=== PATIENT | female | born 1950 | race Caucasian/White ===

== ENCOUNTER 2024-06-12 10:41 | Emergency (ER) | payer MEDICARE, OTHER, SELFPAY ==
[2024-06-12 10:56] VITALS: BP 123/72; PULSE 72; RESP 18; TEMP 36.5; O2SAT 98; BMI 20.4
--- NOTE | 2024-06-12 11:03 | XR_ITS ---
Examination: CT abdomen with intravenous contrast CT pelvis with intravenous contrast 2-D coronal reconstructions 2-D sagittal reconstructions Date and time of exam:June 12, 2024 1351 hours INDICATIONS: Right upper abdominal pain radiating to the back today. CTDI: vol (mGy) 5.6 DLP: (mGycm) 271 Technique: Multiple axial sections of the abdomen and pelvis have been obtained. 64 slice high-resolution scanner used. 3 mm axial sections have been obtained, post intravenous injection 60 cc [id number] 2-D sagittal, coronal reconstructions obtained. Low dose protocols were performed. One or more of the following dose reduction techniques were used; automated exposure control, adjustment of the mA and/or KV according to patient size, use of iterative reconstruction technique. Findings: Multiple benign liver cysts Fatty infiltration throughout the liver Spleen is not enlarged No pancreatic or adrenal mass No renal or ureteral calculi, no hydronephrosis Aorta normal size Normal appendix No bowel obstruction No diverticulitis Absent uterus No pelvic mass Severe osteopenia, kyphoplasty lower 4 lumbar levels Advanced narrowing hip joints IMPRESSION: No renal or ureteral calculi, no hydronephrosis Normal appendix Severe osteopenia, kyphoplasty lower 4 lumbar levels
[2024-06-12 11:18] LABS: Collection Type, Urine Clean Catch
[2024-06-12 11:21] LABS: Bilirubin,Urine Negative (Negative); Blood,Urine Negative (Negative); Clarity,Urine Clear (Clear/Hazy); Color,Urine Lt-Yellow (Lt Yel-Yel); Culture Indicated,Urine Not Indicated; Glucose, Urine Negative (Negative); Ketones,Urine Negative (Negative); Leukocyte Esterase,Urine Negative (Negative); Nitrite,Urine Negative (Negative); PH,Urine 5.5 (5.0-7.0); Protein,Urine Trace (Neg - Trace); RBC,Urine 4 /hpf (0-3); Specific Gravity,Urine 1.017 (1.001-1.035); Squamous Epithelial Cell,Urine < 1 /hpf (0-5); Urobilinogen,Urine Negative mg/dL (0.0-1.0); WBC,Urine < 1 /hpf (0-5)
--- NOTE | 2024-06-12 11:35 | PD.EDRME ---
Rapid Medical Screening Exam RME Arrival date/time: 06/12/24 10:41 73-year-old female presents to the emergency department complaints of abdominal pain Chief Complaint: Abdominal Pain Time Seen by Provider: 06/12/24 10:59 Vital signs: Vital Signs Temperature 97.7 F 06/12/24 10:56 Pulse Rate 72 06/12/24 10:56 Respiratory Rate 18 06/12/24 10:56 Blood Pressure 123/72 06/12/24 10:56 Pulse Oximetry (%) 98 06/12/24 10:56 Oxygen Delivery Method Room Air 06/12/24 10:56
[2024-06-12 12:13] LABS: Basophils # (Auto) 0.1 Thou/mm3 (0.0-0.2); Basophils % (Auto) 1 % (0-2.5); Eosinophils # (Auto) 0.1 Thou/mm3 (0.0-0.5); Eosinophils % (Auto) 2 % (0-10); Hematocrit 41.1 % (36.0-46.0); Hemoglobin 13.8 g/dL (12.0-16.0); Immature Granulocytes % (Auto) 0 % (0-0); Immature Granulocytes Auto 0.02 Thou/mm3 (0.00-0.00); Lymphocytes % (Auto) 22 % (10-50); Mean Corpuscular HGB Conc 33.6 g/dl (31.0-37.0); Mean Corpuscular Volume 89 fL (80-100); Monocytes # (Auto) 0.8 Thou/mm3 (0.0-0.8); Monocytes % (Auto) 9 % (0-12); Neutrophils # (Auto) 6.2 Thou/mm3 (1.8-7.7); Neutrophils % (Auto) 67 % (37-80); Nucleated Red Blood Cell % 0 /100 WBC (0); Platelet Count 209 Thou/mm3 (140-440); RDW Standard Deviation 41.9 fL (36.4-46.3); White Blood Count 9.2 Thou/mm3 (3.6-11.0)
[2024-06-12 12:43] LABS: Alanine Aminotransferase 17 U/L (10-49); Albumin, Serum 4.8 gm/dL (3.4-4.8); Albumin/Globulin Ratio 2.2 (1.2-2.2); Alkaline Phosphatase 113 U/L (46-116); Anion Gap 7 (7-16); Aspartate Amino Transferase < 8 U/L (0-34); BUN/Creatinine Ratio 16 Ratio (12-20); Bilirubin,Total 0.5 mg/dL (0.3-1.2); Blood Urea Nitrogen 14 mg/dL (9-23); Carbon Dioxide 27.9 mMol/L (20.0-31.0); Chloride 103 mMol/L (98-107); Creatinine (Component) 0.9 mg/dL (0.6-1.3); Estimated Creatinine Clearance 43.4 mL/min (>60); Globulin 2.2 gm/dL (2.3-3.5); Glucose 105 mg/dL (74-106); Lipase 51 U/L (12-53); Osmolality,Calculated 276 (275-295); Potassium 4.1 mMol/L (3.4-5.1); Sodium 138 mMol/L (136-145); eGFR > 60 See Note
--- NOTE | 2024-06-12 14:43 | EDNOTE_ITS ---
ED Abdominal Pain RME/HPI General Chief Complaint: Abdominal Pain Stated complaint: ABD PAIN X 5 DAYS; CHO SENT FOR POSS. LALI Time seen by provider: 06/12/24 10:59 Arrival date/time: 06/12/24 10:41 Limitations: no limitations RME / HPI RME / HPI narrative: 06/12/24 10:41 73-year-old female presents to the emergency department complaints of abdominal pain DR. CRISTIANO CARTWRIGHT ED EVALUATION: 73 year old female with history of chronic back pain s/p kyphoplasty presents to the ED for evaluation of abdominal pain beginning 5 days ago and progressively worsening. Described as sharp in sens ation that is located most to the right upper quadrant and epigastric regions that radiates to her right flank. Aggravated with sitting and certain positions. Improved with lying completely flat. States she consulted her PCP who prescribed a muscle relaxer that did not provide relief. Denies fevers, chills, chest pain, cough, shortness of breath, vomiting, diarrhea, or urinary symptoms. States she had experienced pain on/off for several months in the RUQ to a lesser severity and has consulted PCP. Related Data Home Medications ?Medication ?Instructions ?Recorded ?Confirmed calcium 600 mg (as carbonate)-vit 1 tab PO BID 12/20/18 01/26/23 D3 20 mcg (800 unit) chewable tablet (Caltrate plus D) fluticasone propionate 50 2 spray intranasal QDAY 12/20/18 01/26/23 mcg/actuation nasal spray,suspension metoprolol tartrate 25 mg tablet 25 mg PO QDAY 12/20/18 01/26/23 montelukast 10 mg tablet 10 mg PO QPM 12/20/18 01/26/23 tramadol 50 mg tablet 50 mg PO BID PRN Pain 07/29/22 01/26/23 Previous Rx's ?Medication ?Instructions ?Recorded acetaminophen 500 mg capsule 1,000 mg (2 x 500 mg) PO Q6H PRN 06/12/24 pain #20 caps ibuprofen 600 mg tablet 600 mg PO Q6H PRN pain #30 tabs 06/12/24 Allergies Allergy/AdvReac Type Severity Reaction Status Date / Time meperidine Allergy Unknown Verified 06/12/24 10:43 Review of Systems Review of Systems Narrative Review of Systems: GEN: No fever, no chills, no weight loss EYES: No discharge, no visual changes, no pain HEENT: No ear pain, no congestion, no sore throat PULM: No shortness of breath, no cough, no congestion CV: No chest pain, no dyspnea on exertion, no palpitations GI: No nausea, no vomiting, no diarrhea, +pain, no constipation : No frequency, no urgency, no dysuria MUSC/SKEL: No joint pain, +back pain SKIN: No rash NEURO: No weakness, no headache Past Medical History Past Medical History CARDIAC: Positive Cardiac Arrhythmia, Hypercholesterolemia and Hypertension GASTROINTESTINAL: Positive Gastrointestinal Disorders, Diverticulitis and Irritable Bowel GENITOURINARY: Positive Genitourinary Disorders (kidney infection hospitalized x5 days) MUSCULOSKELETAL: Positive Musculoskeletal Disorders, Arthritis, Osteoporosis, Carpal Tunnel Syndrome (Right x2) and Fractures (X3) OTHER HISTORY: Positive Chicken Pox and Measles; Negative Organ Transplant Family History FAMILY HISTORY: Positive Family Cardiac Disorders (father VA, mom stroke) and Family Cancer (sister uterine) Surgical History SURGICAL: Positive Tonsillectomy, Joint Replacement and Hysterectomy; Negative Organ Transplant Social History SMOKING STATUS: Never smoker ED Exam General Limitations: Present no limitations General appearance: Present alert and in distress (Appears to be in moderate pain ) Head Head exam: Present atraumatic, normocephalic and normal inspection Eye Eye exam: Present normal appearance, PERRL and EOMI ENT ENT exam: Present normal exam, normal oropharynx and mucous membranes moist Neck Neck exam: Present normal inspection, full ROM and trachea midline Chest Chest inspection: Present normal inspection and symmetric chest wall rise Respiratory Respiratory exam: Present normal lung sounds bilaterally Cardiovascular Cardiovascular exam: Present regular rate, normal rhythm and normal heart sounds Abdominal Exam Abdominal exam: Present soft and normal bowel sounds; Absent distention, tenderness, guarding, rebound or rigidity Extremities Exam Extremities exam: Present normal inspection and full ROM Back Exam Back exam: Present normal inspection and full ROM; Absent tenderness, CVA tenderness (R) or CVA tenderness (L) Neurological Exam Neurological exam: Present alert, oriented X3 and CN II-XII intact Psychiatric Psychiatric exam: Present normal affect and normal mood Skin Skin exam: Present warm, dry, intact and normal color Course Quality Measures none Orders Category Date Time Status CT Screening NOW Care 06/12/24 11:[address] abdomen pelvis w con Stat Exams 06/12/24 11:03 Completed US gall bladder Stat Exams 06/12/24 14:53 Completed CBC Stat Lab 06/12/24 11:55 Completed Comprehensive Metabolic Panel Stat Lab 06/12/24 11:55 Completed Lipase Stat Lab 06/12/24 11:55 Completed UA, C/S IF [Urinalysis, C/S if Indicated] Stat Lab 06/12/24 11:13 Completed Acetaminophen Ivpb [Ofirmev Inj] Med 06/12/24 15:53 Discontinued 1,000 mg in 100 ml IV X1 Ketorolac Inj [Toradol Inj] Med 06/12/24 15:53 Discontinued 15 mg IVP X1 ONE Reevaluation(s) Reevaluation #1: We reviewed all the results, analysis, and treatment plans. Will order pain medication and reassess. Time: 15:35 Reevaluation #2: Patient reports improvement. Will DC home with instructions to follow up with PCP. Time: 16:20 Vital Signs Vital signs: Vital Signs Temperature 97.7 F 06/12/24 10:56 Pulse Rate 72 06/12/24 10:56 Respiratory Rate 18 06/12/24 10:56 Blood Pressure 123/72 06/12/24 10:56 Pulse Oximetry (%) 98 06/12/24 10:56 Oxygen Delivery Method Room Air 06/12/24 10:56 Pulse ox is 98% on room air which is adequate. Abdominal Pain MDM MDM Narrative MDM Narrative:: Kandi Law am scribing for and in the presence of Dr. Stafford. Patient data External records reviewed:: [facility] previous records (I reviewed H&P on 01/26/2023 ) Clinical information provided by:: patient Social determinants that could affect healthcare access:: none Patient has the following chronic illnesses:: chronic back pain s/p kyphoplasty How is presenting disease/condition affected by chronic disease/condition?: exacerbated by Evaluation data The following diagnostics were reviewed and interpreted by me:: lab results and radiology exam(s) Lab and/or radiology exams considered but not ordered:: None Interpretation Summary: Ordering Physician: Zulay HARPER)Crow NP Date of Service: 06/12/24 Procedure(s): CT abdomen pelvis w con Accession Number(s): [id number] cc: Zulay HARPER)Crow NP; lEijah Marcus MD; Monica Cho MD~ Examination: CT abdomen with intravenous contrast CT pelvis with intravenous contrast 2-D coronal reconstructions 2-D sagittal reconstructions Date and time of exam:June 12, 2024 1351 hours INDICATIONS: Right upper abdominal pain radiating to the back today. CTDI: vol (mGy) 5.6 DLP: (mGycm) 271 Technique: Multiple axial sections of the abdomen and pelvis have been obtained. 64 slice high-resolution scanner used. 3 mm axial sections have been obtained, post intravenous injection 60 cc [id number] 2-D sagittal, coronal reconstructions obtained. Low dose protocols were performed. One or more of the following dose reduction techniques were used; automated exposure control, adjustment of the mA and/or KV according to patient size, use of iterative reconstruction technique. Findings: Multiple benign liver cysts Fatty infiltration throughout the liver Spleen is not enlarged No pancreatic or adrenal mass No renal or ureteral calculi, no hydronephrosis Aorta normal size Normal appendix No bowel obstruction No diverticulitis Absent uterus No pelvic mass Severe osteopenia, kyphoplasty lower 4 lumbar levels Advanced narrowing hip joints IMPRESSION: No renal or ureteral calculi, no hydronephrosis Normal appendix Severe osteopenia, kyphoplasty lower 4 lumbar levels Dictated By: Elijah Marcus MD Signed By: <Electronically signed by Elijah Marcus MD in OV> 06/12/24 1427 Ordering Physician: Sylvester Stafford MD Date of Service: 06/12/24 Procedure(s): US gall bladder Accession Number(s): [id number] cc: Elijah Marcus MD; Monica Cho MD; Sylvester Stafford MD~ Examination: Abdomen sonogram, Limited Date and time of exam: June 12, 2024 1459 hours INDICATIONS: Right upper abdominal pain beginning 5 days ago Technique: Real-time rick scale transabdominal sonographic images of the upper abdomen obtained. Findings: Normal gallbladder Normal common bile duct 0.2 cm Pancreatic head 2.4 cm Liver 12.8 cm multiple liver cysts, the largest in the left lobe 2.4 cm Normal hepatopedal portal venous flow Patent IVC IMPRESSION: Normal gallbladder Normal common bile duct Benign liver cysts Dictated By: Elijah Marcus MD Signed By: <Electronically signed by Elijah Marcus MD in OV> 06/12/24 1528 Medications / Prescriptions Medications or Prescriptions considered but not ordered:: None Medication administrations:: Medication Administration History Discontinued Medications Acetaminophen (Ofirmev Inj) 1,000 mg in 100 mls @ 250 mls/hr IV X1 ONE Stop: 06/12/24 16:16 Last Admin: 06/12/24 16:24 Dose: Not Given Documented By: GIUSEPPE Non-Admin Reason: Patient Refused Ketorolac Tromethamine (Ketorolac Inj 30 Mg/Ml Vial) 15 mg IVP X1 ONE Stop: 06/12/24 15:54 Last Admin: 06/12/24 16:23 Dose: 15 mg Documented By: GIUSEPPE See above Consultations Consultation(s) initiated? (list below): No Diagnosis Differential diagnosis abdominal pain: abdominal pain, acute appendicitis, calculus of kidney, constipation, gastroenteritis and other (Cholelithiasis, cho lecystitis ) Most likely diagnosis given after review of the tests above:: Chronic pain Admission Indicated Admission indicated?: not indicated Admission Request Was there a request for admission?: No Disposition Plan Disposition Plan: Discharge Discharge Attestation Discharge Attestation: The patient and all family members were given an opportunity to ask questions and understood the discharge instructions. Discharge instructions specifically effects, indications for sooner follow up or return to the emergency department, and the expected course of current diagnosis. Patient condition: Stable Discharge Plan Plan Patient Disposition: HOME (Self Care) Disposition Comment: Stable for discharge Patient condition on transfer: Stable Prescriptions/Referrals Prescriptions/Med Rec: New acetaminophen 500 mg capsule 1,000 mg PO Q6H PRN (Reason: pain) Qty: 20 0RF ibuprofen 600 mg tablet 600 mg PO Q6H PRN (Reason: pain) Qty: 30 0RF No Action montelukast 10 mg Tablet 10 mg PO QPM fluticasone propionate 50 mcg/actuation [place],Suspension 2 spray INTRANASAL QDAY metoprolol tartrate 25 mg Tablet 25 mg PO QDAY Caltrate 600 plus D 600 mg (1,500 mg)-800 unit Tablet,Chewable 1 tab PO BID tramadol 50 mg Tablet 50 mg PO BID PRN (Reason: Pain) Referrals: Monica Cho MD [Primary Care Provider] - In 1 week Problem List Clinical Impression: Chronic pain Patient/Caregiver Discharge Instructions Discharge Activity: activity as tolerated Education Materials: Complementary Care for Pain, Chronic Pain Therapies Mind Body, ED Chronic Pain Additional Instructions: Return to the emergency department for any worsening or any further medical problems The CT scan of your abdomen and pelvis, the ultrasound of your gallbladder, all of your blood work and urine were all within normal limits today. The etiology of your chronic pain remains unclear but you should follow-up with your primary care doctor within the next several days and she will perform more tests Print Language: Chinese Stand Alone Forms: [employer] Info., Patient Portal Info Letter
--- NOTE | 2024-06-12 14:53 | XR_ITS ---
Examination: Abdomen sonogram, Limited Date and time of exam: June 12, 2024 1459 hours INDICATIONS: Right upper abdominal pain beginning 5 days ago Technique: Real-time rick scale transabdominal sonographic images of the upper abdomen obtained. Findings: Normal gallbladder Normal common bile duct 0.2 cm Pancreatic head 2.4 cm Liver 12.8 cm multiple liver cysts, the largest in the left lobe 2.4 cm Normal hepatopedal portal venous flow Patent IVC IMPRESSION: Normal gallbladder Normal common bile duct Benign liver cysts
[2024-06-12] MEDS: KETOROLAC INJ 30 MG/ML VIAL 15 MG IVP (16:23)
[2024-06-12 17:00] VITALS: BP 120/78; PULSE 78
== END 2024-06-12 17:01 | disposition home or self-care (01) ==
PROVIDERS: Nurse Practitioner Primary Care; Emergency Provider Emergency Medicine; PCP Family Medicine
DX: K76.89 Other specified diseases of liver (principal); M85.88 Other specified disorders of bone density and structure, other site
CPT/HCPCS: 36415; 74177; 76705; 80053; 81001; 83690; 85025; 96374; 99284; A4649; J1885; Q9967